=== PATIENT | male | born 1960 | race Caucasian/White ===

== ENCOUNTER 2020-06-22 06:48 | Day surgery (SDC) | payer BC ==
[2020-06-21 15:26] LABS: BASOPHILS # (AUTO) 0.1 X10'3 (0-0.2); BASOPHILS % (AUTO) 0.6 % (0-1); EOSINOPHILS # (AUTO) 0.1 X10'3 (0-0.9); EOSINOPHILS % (AUTO) 0.6 % (0-6); HEMATOCRIT 44.3 % (42.0-52.0); HEMOGLOBIN 14.7 g/dl (14.0-17.9); LYMPHOCYTES # (AUTO) 5.3 X10'3 (1.1-4.8); LYMPHOCYTES % (AUTO) 46.1 % (21-51); MEAN CORPUSCULAR HEMOGLOBIN 30.6 PG (27.0-31.0); MEAN CORPUSCULAR HGB CONC 33.2 g/dL (33.0-36.5); MEAN CORPUSCULAR VOLUME 92.2 FL (78-98); MEAN PLATELET VOLUME 10.5 FL (7.4-10.4); MONOCYTES # (AUTO) 0.5 X10'3 (0-0.9); MONOCYTES % (AUTO) 4.7 % (2-12); NEUTROPHILS # (AUTO) 5.5 X10'3 (1.8-7.7); PLATELET COUNT 228 X10'3 (140-440); RED BLOOD COUNT 4.81 X10'6 (4.70-6.10); RED CELL DISTRIBUTION WIDTH 13.5 % (11.5-14.5); WHITE BLOOD COUNT 11.5 X10'3 (4.5-11.0)
[2020-06-21 15:34] LABS: ALBUMIN 4.4 G/DL (3.4-5.0); ANION GAP 6 (8-16); BLOOD UREA NITROGEN 15 MG/DL (7-18); BUN/CREATININE RATIO 12.4 (5.4-32.0); CALCIUM 9.3 MG/DL (8.5-10.1); CHLORIDE 106 MMOL/L (99-107); CREATININE 1.21 MG/DL (0.60-1.10); GLUCOSE 99 MG/DL (70-104); POTASSIUM 4.4 MMOL/L (3.5-5.1); SODIUM 141 MMOL/L (135-145); TOTAL CARBON DIOXIDE 28.8 MMOL/L (24-32); eGFR 61 ML/MIN
[~2020-06-22] VITALS: Ht 185.4 cm; Wt 92.9 kg
[2020-06-22] MEDS ORDERED: MIDAZolam 1mg/ml 10ml vial IV ONE (07:00)
[2020-06-22] MEDS ORDERED: diphenhydrAMINE 25mg capsule PO ONE (07:00)
[2020-06-22] MEDS ORDERED: LORazepam 0.5 MG tablet PO ONE (07:00)
[2020-06-22] MEDS ORDERED: atropine 0.1mg/ml 10ml syringe IV ONE (07:00)
[2020-06-22] MEDS ORDERED: morphine 10mg/ml inj. IV ONE (07:00)
[2020-06-22] MEDS ORDERED: amiodarone 150mg/dext, iso-os 100 ML IV ONE (07:00)
[2020-06-22] MEDS ORDERED: APIX5TAB3 PO (07:27)
[2020-06-22] MEDS ORDERED: FLEC100T35 PO (07:27)
[2020-06-22] MEDS ORDERED: ASPI-1265 PO (07:27)
[2020-06-22] MEDS ORDERED: ATOR40TA7 PO (07:27)
[2020-06-22] MEDS ORDERED: CARV-49 PO (07:27)
[2020-06-22] MEDS ORDERED: FENO145T38 PO (07:27)
[2020-06-22 07:42] VITALS: BP 152/79
--- NOTE | 2020-06-22 09:30 | NUR ---
Procedure cancelled due to patient being in sinus rhythm. Dr. Pinon at bedside.
== END 2020-06-22 10:30 | disposition home or self-care (01) ==
LOC: SSTAY O 06:48
PROVIDERS: ATTEND Internal Medicine Cardiovascular Disease
DX: I48.0 Paroxysmal atrial fibrillation (principal); I25.10 Atherosclerotic heart disease of native coronary artery without angina pectoris; E11.9 Type 2 diabetes mellitus without complications; E78.5 Hyperlipidemia, unspecified; Z79.01 Long term (current) use of anticoagulants; Z79.899 Other long term (current) drug therapy
CPT/HCPCS: 80048; 85025; 93005

== ENCOUNTER 2022-10-15 22:28 | Emergency (ER) | payer BC ==
[~2022-10-15] VITALS: Ht 185.4 cm; Wt 86.4 kg
[~2022-10-15 22:28] MED LIST: APIX5TAB3 PO; ASPI-1265 PO; ATOR40TA7 PO; CARV-49 PO; FENO145T38 PO; FLEC100T35 PO
[2022-10-15 23:19] VITALS: BP 147/97
[2022-10-16] MEDS ORDERED: ondansetron 4mg rapidly disintigrating tab PO ONE (01:45)
[2022-10-16] MEDS ORDERED: bacitracin 15gm ointment TP ONE (01:45)
[2022-10-16] MEDS ORDERED: TETanus/Pertussis (Acell)/Diphther VAC/PF (Tdap-Adult) 0.5ml syringe IMVAC ONE (01:45)
[2022-10-16] MEDS ORDERED: amox tr/potassium clavulanate 500mg/125mg TAB PO ONE (01:45)
--- NOTE | 2022-10-16 02:08 | NUR ---
wound cleaned topical abx applied im given
== END 2022-10-16 02:13 | disposition home or self-care (01) ==
LOC: ER 22:29
DX: S00.31XA Abrasion of nose, initial encounter (principal); W54.0XXA Bitten by dog, initial encounter; Y93.89 Activity, other specified; Y92.89 Other specified places as the place of occurrence of the external cause; Y99.8 Other external cause status
CPT/HCPCS: 90471; 90715; 99284

== ENCOUNTER 2025-02-26 10:12 | Day surgery (SDC) | payer BC ==
[2025-02-25 13:20] LABS: MEAN PLATELET VOLUME 9.9 FL (7.4-10.4); RED CELL DISTRIBUTION WIDTH 14.5 % (11.5-14.5)
[2025-02-25 13:30] LABS: APTT 26 SECONDS (22-32); INR 1.0 INR
[2025-02-25 13:40] LABS: CREATININE 1.00 MG/DL (0.60-1.10); TOTAL CARBON DIOXIDE 28.7 MMOL/L (24-32); eGFR 75 ML/MIN
[~2025-02-26] VITALS: Ht 185.4 cm; Wt 84.6 kg
[2025-02-26] VITALS (10 sets, daily range): BP systolic 109–140; BP diastolic 50–125; PULSE 60–65; RESP 10–15; TEMP 97.8; O2SAT 95–98
[~2025-02-26 10:12] MED LIST changes: +ATOR-411 PO; -ATOR40TA7 PO
--- NOTE | 2025-02-26 10:39 | ELECTROCARDIOGRAPH REPORT ---
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 PUSHPA Meyer Measurements Intervals [place] Rate: 57 P: 52 DE: 198 QRS: -1 QRSD: 99 T: 56 QT: 456 QTc: 444 Interpretive Statements Sinus rhythm Consider left atrial enlargement Abnormal R-wave progression, early transition Electronically Signed On 02-26-2025 20:21:[address] PUSHPA Meyer Please click the below link to view image of tracing.
[2025-02-26] MEDS ORDERED: SOTA80TA PO (11:21)
[2025-02-26] MEDS ORDERED: CARI-515 PO (11:21)
[2025-02-26] MEDS ORDERED: EMPA25TA PO (11:21)
[2025-02-26] MEDS ORDERED: FENO135C4 PO (11:22)
[2025-02-26] MEDS ORDERED: EMPA10TA PO (11:22)
[2025-02-26] MEDS ORDERED: FLUO-1 PO (11:23)
[2025-02-26] MEDS ORDERED: ALPR2TAB7 PO (11:24)
[2025-02-26] MEDS ORDERED: fentaNYL/PF 50MCG/1 ML 2ML syringe ONE (11:30)
[2025-02-26] MEDS ORDERED: LIDOcaine 1% W/epiNEPHrine 1:100,000 20ml vial ONE (11:30)
[2025-02-26] MEDS ORDERED: midazolam 1 mg/ML 2ml injection ONE ×2 (11:30→12:08)
[2025-02-26] MEDS: normal saline 100ml IV soln 100 ML IV ONE (11:35)
[2025-02-26] MEDS ORDERED: ceFAZolin 2gm/dext,iso 50mL 50 ML IV ONE (11:35)
[2025-02-26] MEDS ORDERED: CEPH-585 PO (15:02)
[2025-02-26] MEDS ORDERED: HYDROcodone/acetaminophen 5mg/325mg tablet PO PRN (15:05)
[2025-02-26] MEDS: vancomycin/NS 1 GM ADD-VANTAGE 250 ML X 1 DOSE IV ONE (16:04)
--- NOTE | 2025-02-26 16:33 | RADIOLOGY REPORT ---
CHEST RADIOGRAPH Indication: S/P pacemaker Technique: Frontal and lateral view of the chest was obtained Comparison: None FINDINGS: Lines and Tubes: Left chest wall pacemaker Lungs: Clear Pleura: No effusion. No pneumothorax. Cardiomediastinal contours: Unremarkable Bones: Unremarkable IMPRESSION: No evidence of acute disease.
[2025-02-26] MEDS: HYDROcodone/acetaminophen 10/325mg tab PO PRN (16:45)
--- NOTE | 2025-03-02 01:01 | CARDIOLOGY REPORT ---
DATE OF SERVICE: 02/26/2025 DICTATING PHYSICIAN: PUSHPA Pinon MD PERMANENT PACEMAKER IMPLANTATION REPORT GENDER: Male. AGE: 64 years. HEIGHT: 185 cm. WEIGHT: 84.6 kg. BODY SURFACE AREA: 2.09 m2. PRIMARY PHYSICIAN: Ernie Phillips MD STANDARDS ANALYST: PUSHPA Pinon MD INDICATIONS: The patient is a 64-year-old male with a history of sick sinus syndrome with paroxysmal atrial fibrillation and symptomatic bradycardia. He also has diabetes, hypertension, hyperlipidemia, CAD, and sleep apnea. The patient also had a syncopal episode. He had a second episode of syncope in 06/2024 and the patient had an event monitor on 11/28/2024, which showed a lowest heart rate of 48 and also episodes of tachycardia. The patient also has a history of palpitations and paroxysmal atrial fibrillation in 04/2020 and he had also ablation by Dr. Campa on 10/05/2021 and lately has been having episodes of bradycardia and not been able to tolerate medications for AFib because of progressively increasing tiredness and fatigue and sick sinus syndrome with tachy and huey episode, the patient has decided to proceed with permanent pacemaker implantation. Risks, benefits, and alternative options discussed. Informed consent obtained. SURGEON: PUSHPA Pinon MD, [facility] [employer] PROFESSOR SURGEON: None. ANESTHESIOLOGIST: None. ANESTHESIA: Conscious sedation with local anesthesia. COMPLICATIONS: None. PROCEDURE TECHNIQUE: Patient was prepped and draped in the usual fashion and the procedure was carried out under out in local anesthesia and conscious sedation. Two separate accesses obtained to the left subclavian vein using micropuncture technique. Two micropuncture wires were replaced with two J wires. A horizontal incision placed in the left infraclavicular area. Using blunt dissection and electrocautery, subcutaneous prepectoral pacemaker pocket was fashioned. External ends of the J-wires were retrieved into the pacemaker pocket. Two 7-Mongolian sheaths were advanced over the J-wires, and through one of them, RV lead advanced to the RV apex, screwed into the RV apex. Appropriate pacing and sensing thresholds obtained. Sheath removed by peel-away technique. Lead anchored to the subcutaneous tissue with Ethibond, and through the second 7-Mongolian sheath, right atrial lead was advanced to the right atrium. J-wire was formed, screwed into the right atrial appendage, appropriate pacing and sensory thresholds obtained. Sheath was removed by peel-away technique and lead anchored to the subcutaneous tissue. Then, the pocket was irrigated with copious antibiotic solution. Leads then connected to appropriate sockets of a pulse generator. Set screws were tightened. Tug test performed. Pocket closed with continuous 0 Vicryl followed by interrupted 0 Vicryl. Third layer of interrupted 2-0 Vicryl applied. Skin approximated with vanessa. Pressure dressing applied. serial number [id number], Relevvant, subpectoral location, model number [id number], Medtronic right atrial lead screwed into right atrial appendage. millivolts, 456 ohms of impedance. RIGHT VENTRICULAR LEAD: model number [id number], 58 cm long, serial number 02/26/2025, RV apex, R-wave amplitude of 7.6 millivolts, 627 ohms impedance, pacing threshold of 0.7 at 0.4 milliseconds. IMPRESSION: A 64-year-old male with sick sinus syndrome with tachy and huey episode, underwent successful AV sequential pacemaker implantation with no complications. PUSHPA Pinon MD TID: [id number] RECEIPT: [id number] AMBER/DELPHINE/LENIN cc: Ernie Phillips MD [facility]
== END 2025-02-26 18:30 | disposition home or self-care (01) ==
LOC: SSTAY O 10:12
PROVIDERS: ATTEND Internal Medicine Cardiovascular Disease
DX: I49.5 Sick sinus syndrome (principal); I25.10 Atherosclerotic heart disease of native coronary artery without angina pectoris; I10 Essential (primary) hypertension; E11.9 Type 2 diabetes mellitus without complications; E78.5 Hyperlipidemia, unspecified; I48.0 Paroxysmal atrial fibrillation; G47.30 Sleep apnea, unspecified; F41.9 Anxiety disorder, unspecified; Z79.01 Long term (current) use of anticoagulants; Z79.899 Other long term (current) drug therapy; Z90.49 Acquired absence of other specified parts of digestive tract; Z98.890 Other specified postprocedural states; Z80.42 Family history of malignant neoplasm of prostate; Z80.8 Family history of malignant neoplasm of other organs or systems
CPT/HCPCS: 33208; 36415; 71046; 80048; 82948; 85025; 85610; 85730; 93005; 99152; 99153; C1785; C1898; J0690; J1171; J1200; J2250; J3010; J3373; J3490; A4565; A6449

== ENCOUNTER 2025-03-01 14:24 | Emergency (ER) | payer BC ==
[~2025-03-01] VITALS: Ht 188 cm; Wt 74.0 kg
[~2025-03-01 14:24] MED LIST changes: +ALPR2TAB7 PO; -ASPI-1265 PO; +CARI-515 PO; -CARV-49 PO; +CEPH-585 PO; +EMPA10TA PO; +FENO135C4 PO; -FENO145T38 PO; -FLEC100T35 PO; +FLUO-1 PO; +SOTA80TA PO
[2025-03-01 14:27] VITALS: TEMP 97.5
--- NOTE | 2025-03-01 14:46 | Physician Documentation ---
History of Present Illness ~ Chief Complaint: Chest Wall Pain Stated Complaint: PACEMAKER PROBLEMS Time Seen by MD: 15:02 HPI Patient is a 64-year-old gentleman that presents to the emergency department for evaluation of pain stemming. From the pacemaker that he had placed on Saturday. Patient reports that the pain is consistent and it is the same pain that he felt immediately after placement on Saturday. Patient reports that he spoke with his doctor's office they are not concerned about any cardiac concerns at this time but ask him to report to the emergency department to be prescribed pain medication until he follows up with them on Saturday. Patient denies chest pain shortness of breath palpitations lightheadedness or any other concerns this could be a cardiac issue. Patient is currently taking antibiotics. Reports he was given [place] 10 on Saturday that worked very well. He would like to try that again until he can follow up with his bleach machine operator. Patient describes pain to the upper left inferior clavicle right at the site of the pacemaker. Medication Reconciliation Allergies: Coded Allergies: No Known Allergies (Unverified , 03/01/25) Scheduled Apixaban (Eliquis), 1 TAB PO Q12H, (Reported) Atorvastatin Calcium (Lipitor), 1 TAB PO DAILY, (Reported) Cephalexin*Monohydrate* (Keflex*), 1 CAP PO Q8H Empagliflozin (Jardiance), 1 TAB PO DAILY, (Reported) Fenofibric Acid (Choline) (Fenofibric Acid), 1 CAP PO DAILY, (Reported) Fluoxetine Hcl (Prozac), 1 TAB PO DAILY, (Reported) Sotalol Hcl (Sotalol), 1 TAB PO BID, (Reported) Scheduled PRN Alprazolam (Alprazolam), 1 TAB PO BID PRN for pain, (Reported) Carisoprodol (Carisoprodol), 1 TAB PO BID PRN for pain, (Reported) Discontinued Medications Aspirin (Aspirin), 1 TAB PO DAILY, (Reported) Discontinued Reason: patient no longer taking Carvedilol (Coreg), 0.5 TAB PO Q12H, (Reported) Discontinued Reason: patient no longer taking Empagliflozin (Jardiance), 1 TAB PO DAILY, (Reported) Discontinued Reason: wrong med Fenofibrate Nanocrystallized* (Tricor*), PO DAILY, (Reported) Discontinued Reason: patient no longer taking Flecainide Acetate (Flecainide Acetate), 1 TAB PO Q12H, (Reported) Discontinued Reason: patient no longer taking Past Medical History Past Medical History: Atrial Fibrillation, Coronary Artery Disease, Myocardial Infarction, Diabetes, Leukemia Past Surgical History: noncontributory Alcohol Use: None Drug Use: none Review of Systems ROS As stated above in the HPI, otherwise all systems are reviewed and negative. Physical Exam Vital Signs: Temperature: 97.5, Source: Temporal, Heart Rate: 70, Respiratory Rate: 18, BP: 131/78, Pulse Oximetry: 98, Weight: 74.000 Oxygen Flow Rate: 0 Physical Exam VITALS: Reviewed and as above. GENERAL: Alert, no apparent distress. HEENT: Normocephalic, atraumatic, PERRL, EOMI, dry mucosa, no erythema RESPIRATORY: Lungs clear, normal breath sounds, no respiratory distress. CHEST: No accessory muscle use, no retractions CV: Regular rate, rhythm, no edema, no murmur, No: JVD GI: Soft, non-tender, bowels sounds present, no rebound, guarding, or rigidity BACK: No CVA tenderness, or swelling MUSCULOSKELETAL No deformities, edema noted at left upper chest to the eye just inferior to the left clavicle at the site of pacemaker placement. SKIN: Warm and dry, no rash, swelling or bruising noted to upper left chest at site of pacemaker placement. NEURO: Oriented x4, No motor or sensory deficit PSYCH: Normal mood and affect, no agitation Progress Results/Orders Results/Orders Orders - SALLY PICKERING ELECTRICAL APPLIANCE REPAIRER Chest,Two Views (03/01/25 14:57) Completed Orders - SALLY PICKERING ELECTRICAL APPLIANCE REPAIRER Chest,Two Views (03/01/25 14:57) Vital Signs 03/01/25 14:27 Temp 97.5 Pulse 70 Resp 18 B/P (MAP) 131/78 Pulse Ox 98 O2 Flow Rate 0 Medical Decision Making Findings Exam without evidence of volume overload so doubt heart failure. EKG without signs of active ischemia. Presentation not consistent with acute PE (not visualized on chest xr), thoracic aortic dissection, pericarditis, tamponade, pneumonia (no infectious symptoms, clear chest xr), myocarditis. Has a pacemaker placed on Saturday pain is to the surgical sites pain has been consistent since day of surgery patient spoke with his bleach machine operator referred him to the emergency department for pain medication but does not have any cardiac concern at this time. Patient today's workup and exam we also do not have any concern for cardiac component other than pain at the surgical site. Patient will be prescribed pain medication. Patient will follow up with his bleach machine operator on Saturday. Patient will return to the emergency department if he has any worsening of his current symptoms or any additional concerning symptoms that we discussed here today i.e. chest pain and shortness of breath chest pressure nausea vomiting lightheadedness. Differential Dx:Considerations: Include: angina, aortic dissection, chest wall pain, cholelithiasis, CHF, costochondritis, esophageal reflux/spasm, gastritis, herpes zoster, myocardial infarction, pericarditis, pleuritis, pancreatitis, pneumonia, pneumothorax, pulmonary embolus, other Departure Disposition: 01 HOME / SELF CARE / HOMELESS Impression: Primary Impression: Chest wall pain Additional Impression: Pain at surgical site Condition: Stable Discharge Instructions: Biventricular Pacemaker Implantation, Care After Additional Instructions: Exam without evidence of volume overload so doubt heart failure. EKG without signs of active ischemia. Presentation not consistent with acute PE (not visualized on chest xr), thoracic aortic dissection, pericarditis, tamponade, pneumonia (no infectious symptoms, clear chest xr), myocarditis. Has a pacemaker placed on Saturday pain is to the surgical sites pain has been consistent since day of surgery patient spoke with his bleach machine operator referred him to the emergency department for pain medication but does not have any cardiac concern at this time. Patient today's workup and exam we also do not have any concern for cardiac component other than pain at the surgical site. Patient will be prescribed pain medication. Patient will follow up with his bleach machine operator on Saturday. Patient will return to the emergency department if he has any worsening of his current symptoms or any additional concerning symptoms that we discussed here today i.e. chest pain and shortness of breath chest pressure nausea vomiting lightheadedness. Referrals: NO PRIMARY CARE PROVIDER (PCP) Prescriptions Hydrocodone Bit/Acetaminophen 5/325 MG ([place] 5/325 MG) 5 Mg/325 Mg Tablet 1-2 TAB PO Q12H PRN for pain for 4 Days, #16 TAB Prov: SALLY PICKERING 03/01/25 Education Educated: Patient Educated regarding: diagnosis, treatment, need for follow up Signature Scribe Signature: A Attestation: Scribed for Sally Pickering by BEAU Nixon . 03/01/25 15:22 SALLY PICKERING Mar 01, 2025 14:46
--- NOTE | 2025-03-01 15:01 | ELECTROCARDIOGRAPH REPORT ---
[facility] Test Date: 2025-03-01 Test Time: 14:30:13 Pat Name: TRUONG KWOK Department: EMERGENCY ROOM Patient ID: [facility]-[id number] Room: Gender: M Pathology Tech: PM : 1960 Requested By: MARCELLE ESPINOZA Order Number: [id number] Reading MD: Dr. Marcelle Espinoza Measurements Intervals [place] Rate: 67 P: 51 MD: 197 QRS: -14 QRSD: 97 T: 33 QT: 411 QTc: 434 Interpretive Statements Sinus rhythm RSR' in V1 or V2, right VCD or RVH Electronically Signed On 03-01-2025 16:50:[address] Marcelle Espinoza Please click the below link to view image of tracing.
--- NOTE | 2025-03-01 15:07 | RADIOLOGY REPORT ---
CHEST RADIOGRAPH Indication: check pacemaker placment Technique: Frontal and lateral view of the chest was obtained Comparison: DI CHEST,TWO VIEWS on DOS: 02/26/25 FINDINGS: Lines and Tubes: Left chest pacemaker Lungs: Clear Pleura: No effusion. No pneumothorax. Cardiomediastinal contours: Unremarkable Bones: Unremarkable IMPRESSION: No evidence of acute disease.
[2025-03-01] MEDS ORDERED: HYDR-3965 PO (15:20)
[2025-03-01 15:32] VITALS: BP 145/78; PULSE 68; RESP 18; O2SAT 98
== END 2025-03-01 15:32 | disposition home or self-care (01) ==
LOC: ER 14:25
DX: R07.89 Other chest pain (principal); I25.10 Atherosclerotic heart disease of native coronary artery without angina pectoris; E11.9 Type 2 diabetes mellitus without complications; I48.91 Unspecified atrial fibrillation; I25.2 Old myocardial infarction; Z95.0 Presence of cardiac pacemaker; Z79.899 Other long term (current) drug therapy
CPT/HCPCS: 71046; 93005; 99283

== ENCOUNTER 2025-03-04 11:39 | Emergency (ER) | payer BC, OTHER ==
[~2025-03-04] VITALS: Ht 185.4 cm; Wt 72.6 kg
[~2025-03-04 11:39] MED LIST changes: +HYDR-3965 PO
[2025-03-04 11:44] VITALS: TEMP 98.2
--- NOTE | 2025-03-04 13:11 | Physician Documentation ---
History of Present Illness Chief Complaint: See Chief Complaint Stated Complaint: MED REQUEST Time Seen by MD: 11:46 Mode of Arrival: Ambulatory HPI Patient is a 64-year-old gentleman that reports to the emergency department for medication refill. He has had a pacemaker placed almost 2 weeks ago continues to have pain at the site no abnormalities in cardiac function no chest pain no palpitations no lightheadedness no shortness of breath patient went through a thorough evaluation on Saturday with this very same pain patient reports that the pain has not changed since immediately after his surgery. Patient reports he was prescribed [place] on Saturday to get him through until he follows up with his insurance sales supervisor. Reports that he sees his insurance sales supervisor tomorrow and the [place] is only minimally. Medication Reconciliation Allergies: Coded Allergies: No Known Allergies (Unverified , 03/01/25) Scheduled Apixaban (Eliquis), 1 TAB PO Q12H, (Reported) Atorvastatin Calcium (Lipitor), 1 TAB PO DAILY, (Reported) Cephalexin*Monohydrate* (Keflex*), 1 CAP PO Q8H Empagliflozin (Jardiance), 1 TAB PO DAILY, (Reported) Fenofibric Acid (Choline) (Fenofibric Acid), 1 CAP PO DAILY, (Reported) Fluoxetine Hcl (Prozac), 1 TAB PO DAILY, (Reported) Sotalol Hcl (Sotalol), 1 TAB PO BID, (Reported) Scheduled PRN Alprazolam (Alprazolam), 1 TAB PO BID PRN for pain, (Reported) Carisoprodol (Carisoprodol), 1 TAB PO BID PRN for pain, (Reported) Hydrocodone Bit/Acetaminophen 5/325 MG ([place] 5/325 MG), 1-2 TAB PO Q12H PRN for pain Discontinued Medications Aspirin (Aspirin), 1 TAB PO DAILY, (Reported) Discontinued Reason: patient no longer taking Carvedilol (Coreg), 0.5 TAB PO Q12H, (Reported) Discontinued Reason: patient no longer taking Empagliflozin (Jardiance), 1 TAB PO DAILY, (Reported) Discontinued Reason: wrong med Fenofibrate Nanocrystallized* (Tricor*), PO DAILY, (Reported) Discontinued Reason: patient no longer taking Flecainide Acetate (Flecainide Acetate), 1 TAB PO Q12H, (Reported) Discontinued Reason: patient no longer taking Past Medical History Past Medical History: Atrial Fibrillation, Coronary Artery Disease, Myocardial Infarction, Diabetes, Leukemia Past Surgical History: noncontributory Alcohol Use: None Drug Use: none Review of Systems ROS As stated above in the HPI, otherwise all systems are reviewed and negative. Physical Exam Vital Signs: Temperature: 98.2, Source: Temporal, Heart Rate: 61, Respiratory Rate: 15, BP: 134/81, Pulse Oximetry: 97, Weight: 72.600 Physical Exam VITALS: Reviewed and as above. GENERAL: Alert, no apparent distress. HEENT: Normocephalic, atraumatic, PERRL, EOMI, dry mucosa, no erythema RESPIRATORY: Lungs clear, normal breath sounds, no respiratory distress. CHEST: No accessory muscle use, no retractions CV: Regular rate, rhythm, no edema, no murmur, No: JVD GI: Soft, non-tender, bowels sounds present, no rebound, guarding, or rigidity BACK: No CVA tenderness, or swelling MUSCULOSKELETAL No deformities, no edema, pain with palpation to the pacemaker surgical site. SKIN: Warm and dry, no rash, erythema or significant swelling. NEURO: Oriented x4, No motor or sensory deficit PSYCH: Normal mood and affect, no agitation Progress Results/Orders Results/Orders Vital Signs 03/04/25 03/04/25 03/04/25 11:44 12:10 13:01 Temp 98.2 Pulse 66 61 Resp 16 15 15 B/P (MAP) 132/84 134/81 (98) Pulse Ox 99 97 Medical Decision Making Findings Patient is here for medication refill. Discussed with patient that we will provide 2 additional days of [place] which should allow him time to follow up with his insurance sales supervisor tomorrow. Patient evaluated no other concerns at this time. Patient will follow up with his primary care provider in his insurance sales supervisor. Nish weinstein will return to the emergency department if he has any additional symptoms that he needs to be evaluated for i.e. chest pain chest pressure shortness of breath denies numbness tingling or any other concerning symptoms. Differential Dx:Considerations: Include: AAA, Angina/NC, Aortic dissection, Appendicitis, Bowel obstruction, Cholangitis, Cholelithasis, Constipation, Diverticular disease, Esophageal rupture, Esophagitis, Gastritis/PUD, Gastroenteritis, GI hemorrhage, Hernia, Hepatitis, Inflammatory BD, Ischemic bowel, Pancreatitis, Porphyria, Testicular torsion, Trauma, intraabdominal, Urinary obstruction, Urinary tract infection, Urolithiasis, Other Departure Disposition: HOME / SELF CARE / HOMELESS Impression: Primary Impression: Medication refill Condition: Stable Discharge Instructions: Opioid Pain Medicine Management Additional Instructions: Patient is here for medication refill. Discussed with patient that we will provide 2 additional days of [place] which should allow him time to follow up with his insurance sales supervisor tomorrow. Patient evaluated no other concerns at this time. Patient will follow up with his primary care provider in his insurance sales supervisor. Patient will return to the emergency department if he has any additional symptoms that he needs to be evaluated for i.e. chest pain chest pressure shortness of breath denies numbness tingling or any other concerning symptoms. Referrals: NO PRIMARY CARE PROVIDER (PCP) Prescriptions Hydrocodone Bit/Acetaminophen (Hydrocodone-Apap 10-325 Tablet) 10mg/325mg Tablet 1 TABLET PO Q6H PRN for moderate or severe pain 4-10 for 2 Days, #8 TABLET Prov: SALLY PICKERING 03/04/25 Education Educated: Patient Educated regarding: diagnosis, treatment, need for follow up Signature Scribe Signature: A Attestation: Scribed for Sally Pickering by BEAU Nixon . 03/04/25 13:20 SALLY PICKERING Mar 04, 2025 13:11
[2025-03-04] MEDS ORDERED: HYDR-3973 PO (13:18)
[2025-03-04 13:32] VITALS: BP 131/79; PULSE 61; RESP 15; O2SAT 96
== END 2025-03-04 13:34 | disposition home or self-care (01) ==
LOC: ER 11:40
DX: Z76.0 Encounter for issue of repeat prescription (principal); E11.9 Type 2 diabetes mellitus without complications; I48.91 Unspecified atrial fibrillation; I25.2 Old myocardial infarction; I25.10 Atherosclerotic heart disease of native coronary artery without angina pectoris; Z95.0 Presence of cardiac pacemaker; Z79.899 Other long term (current) drug therapy
CPT/HCPCS: 99281